=== PATIENT | female | born 1950 | race Caucasian/White ===

== ENCOUNTER → 2018-12-18 | Outpatient (CLI) | payer MEDICARE, OTHER ==
[~2018-12-18] MED LIST: GADOBUTROL 7.5 MMOL/7.5 ML (GADAVIST) VIAL IV ONE
[2018-12-18 14:23] LABS: BUN/CREATININE RATIO 27; CREATININE SERUM 0.73 MG/DL (0.60-1.30); GFR ESTIMATED > 60
--- NOTE | 2018-12-18 15:21 | Diagnostic Imaging Report ---
PROCEDURE: MR brain and sella with and without contrast. TECHNIQUE: Multiplanar, multisequence MR imaging of the brain was performed with and without contrast. Dedicated dynamic imaging of the sella was performed. INDICATION: Pituitary microadenoma. COMPARISON: None. FINDINGS: The ventricles and sulci are within normal limits. Mild periventricular and subcortical white matter signal abnormalities are noted consistent with chronic microvascular ischemia. No diffusion restriction is identified. Normal expected flow-voids within the carotid siphons are noted. No acute intra-axial or extra-axial hemorrhage is detected. Corpus callosum is unremarkable. No abnormal enhancement following contrast administration is identified. No definite pituitary or sellar mass is identified. Infundibulum appears midline. No definite hypointense mass is seen within the sella to suggest pituitary microadenoma. IMPRESSION: Unremarkable pre- and postcontrast MRI of the brain and pituitary gland. Dictated by: Dictated on workstation # [id number]
== END ==
LOC: RAD 13:08
PROVIDERS: ATTEND Nurse Practitioner Family
DX: D35.2 Benign neoplasm of pituitary gland (principal)
CPT/HCPCS: 36415; 70553; 82565; 84520

== ENCOUNTER → 2019-08-22 | Outpatient (CLI) | payer MEDICARE, OTHER ==
[~2019-08-22] VITALS: Ht 160 cm; Wt 86.0 kg
[~2019-08-22] MED LIST changes: +CATHETER FLUSH 10 ML SYR IV PRN; -GADOBUTROL 7.5 MMOL/7.5 ML (GADAVIST) VIAL IV ONE; +REGADENOSON 0.4 MG/5 ML SYR (LEXISCAN) IV ONE
[2019-08-22 08:08] VITALS: BP 147/94
[2019-08-22 08:10] VITALS: BP 189/84
== END ==
LOC: CARD 06:36
PROVIDERS: ATTEND Nurse Practitioner Family
DX: R07.9 Chest pain, unspecified (principal); R55 Syncope and collapse
CPT/HCPCS: 78452; 93017

== ENCOUNTER 2020-10-28 10:30 | Outpatient (RCR) | payer MEDICARE, OTHER | END 2021-01-26 | disposition home or self-care (01) | LOC: CARD 10:30 | PROVIDERS: ATTEND Nurse Practitioner Family | DX: R00.2 Palpitations (principal); R00.0 Tachycardia, unspecified | CPT/HCPCS: 93225; 93226 ==

== ENCOUNTER → 2022-11-03 | Outpatient (CLI) | payer MEDICARE, OTHER ==
[~2022-11-03] MED LIST changes: -CATHETER FLUSH 10 ML SYR IV PRN; +CATHETER FLUSH 10 ML SYR IVP PRN
[2022-11-03 08:04] VITALS: BP 156/74
--- NOTE | 2022-11-03 10:12 | Cardiology Stress Test Report ---
Stress Test Report Date of Procedure/Referring: Date of Procedure: Nov 03, 2022 PCP Soniya Roy DO Admitting Physician Admitting Physician: Attending Physician: Soha Roy Dnp Indications: CP Baseline Vital Signs Vital Signs Date Time Temp Pulse Resp B/P (MAP) Pulse Ox O2 Delivery O2 Flow Rate FiO2 11/03/22 08:04 82 156/74 (101) Summary: Patient receive a resting and stress dose of Myoview, images were acquired and reviewed in the short axis view, horizontal long axis view and vertical long axis view. TID: 1.09 SSS: 5 SDS: 5 EF: 74 Breast attenuation with reversible ischemia involving the mid to apical anterior wall and anteroseptum Normal left ventricular size, ejection fraction 74% Copy Copies To 1: SONIYA ROY BASHAR J MD Nov 03, 2022 10:12
== END ==
LOC: CARD 07:00
PROVIDERS: ATTEND Nurse Practitioner Family
DX: R07.89 Other chest pain (principal)
CPT/HCPCS: 78452; 93017; A9502